=== PATIENT | male | born 1970 | race Caucasian/White ===

== ENCOUNTER 2018-08-08 11:34 | Emergency (ER) | payer OTHER ==
[2018-08-08] MEDS ORDERED: D50W 50 ml Abboject IV STA (11:44)
[2018-08-08 11:45] LABS: Lactic Acid 2.2 (0.4-2.0)
[2018-08-08] MEDS ORDERED: Sodium Chloride 0.9% 1000 ML 1,000 ML IV STA (11:46)
[2018-08-08 11:47] LABS: BASOPHIL % 0.4 % (0.0-0.4); Basophil (Absolute #) 0.03 (0-0.4); Eosinophil % 2.5 % (0.00-5.0); Granulocyte Absolute (ANC) 3.61 (1.4-6.9); Granulocytes % 44.9 % (36.0-66.0); Hematocrit 44.8 % (42-50); Hemoglobin 14.4 gm/dl (12.5-18.0); Lymphocyte (Absolute #) 3.46 (1.0-4.6); Lymphocytes % 43.1 % (24.0-44.0); Mean Cell Volume 91.2 fl (78-100); Mean Corpuscular Hemoglobin 29.3 pg (26-32); Mean Corpuscular Hgb Concent. 32.1 g/dl (32-36); Mean Platelet Volume 9.2 fl (6-9.5); Monocyte (Absolute #) 0.73 (0.0-1.3); Monocytes % 9.1 % (0.0-12.0); Platelet Count 351 K/mm3 (150-450); Red Blood Count 4.91 M/mm3 (4.1-5.6); Red Cell Distribution Width 13.6 % (11.5-14.0)
[2018-08-08 11:59] LABS: ALBUMIN 4.2 g/dL (3.5-5.0); ALKALINE PHOSPHATASE 94 U/L (38-126); ANION GAP 12.7 MEQ/L (5-15); BLOOD UREA NITROGEN 16 mg/dL (9-20); CHLORIDE 106 mmol/L (98-107); Calcium 9.4 mg/dL (8.4-10.2); Carbon Dioxide 30 mmol/L (22-30); Creatinine 1 0.96 mg/dL (0.66-1.25); MAGNESIUM 2.1 mg/dL (1.6-2.3); Potassium 3.1 mmol/L (3.5-5.1); SGOT/AST 28 U/L (17-59); SGPT/ALT 19 U/L (0-50); SODIUM 146 mmol/L (137-145); Total Protein 7.6 g/dL (6.3-8.2)
[2018-08-08] MEDS ORDERED: DEXTROSE 5%-NORMAL SALINE 500 ML 500 ML IV SCH (12:00)
[2018-08-08 12:13] LABS: ETHYL ALCOHOL < 10 mg/dL (0-10); Glucose < 20 mg/dL (74-106)
[2018-08-08] MEDS ORDERED: Klor Con 10 MEQ PO ONE ×2 (12:24→12:43)
[2018-08-08 12:54] VITALS: O2SAT 98
[2018-08-08] MEDS ORDERED: D50W 50 ml Abboject IV ONE ×2 (12:54→12:55)
[2018-08-08 13:34] LABS: Appearance CLEAR (CLEAR); Bilirubin NEGATIVE (NEGATIVE); Blood NEGATIVE Ery/ul (0-5); Glucose 150 mg/dL (NEGATIVE); Hyaline Casts 0-2 /LPF (0-2); Ketones NEGATIVE (NEGATIVE); Leukocyte Esterase NEGATIVE (NEGATIVE); Mucus SLIGHT /HPF (NEGATIVE); Nitrite NEGATIVE (NEGATIVE); Protein,Urine Dip NEGATIVE (Negative); Urobilinogen NEGATIVE mg/dL (0-1)
--- NOTE | 2018-08-08 16:13 | ERPHSYRPT ---
- History of Present Illness Source: other (co-workers) Exam Limitations: clinical condition Patient Subjective Stated Complaint: hypoglycemic, pt brought in by co workers vehicle unresponsive, BS from lab 10, Triage Nursing Assessment: Pt brought in unresponsive, diaphoretic, snoring, eyes rolling to the back of his head, given D50 and perked instantly up, BP 149/ 89, all other vitals wnl, denies pain, chest clear, Physician History: Pt was brought by his co-worker to the ER. Pt is 48 y/o male with a h/o DM I. He is using Insulin. Today, pt was at work , and did some construction, physical work outside, when he started being confused. By the time he was brought to the ER, the pt was non responsive. Timing/Duration: today Severity: severe Modifying Factors: Improves With: eating Allergies/Adverse Reactions: No Known Drug Allergies Allergy (Verified 08/08/18 12:25) Home Medications: Insulin Glargine [Lantus Insulin] 1 unit SQ UD 08/08/18 [History] Insulin Lispro [Humalog] 1 unit SQ UD 08/08/18 [History] - Review of Systems Constitutional: Other (Pt was non responsive and could not give any history.) - Past Medical History Cardiac History: High Cholesterol, Hypertension Endocrine Medical History: Diabetes Type I - Past Surgical History Past Surgical History: Yes Musculoskeletal: Orthopedic Surgery - Social History Smoking Status: Current some day smoker Exposure to second hand smoke: Yes Drug Use: none Patient Lives Alone: Yes - Nursing Vital Signs Nursing Vital Signs: Initial Vital Signs Temperature 97.8 F 08/08/18 12:12 Pulse Rate 85 08/08/18 12:12 Blood Pressure 149/89 08/08/18 12:12 O2 Sat by Pulse Oximetry 97 08/08/18 12:12 Pain Scale Pain Intensity 0 - Physical Exam General Appearance: lethargy, other (non responsive) Eye Exam: PERRL/EOMI, eyes nml inspection Ears, Nose, Throat Exam: normal ENT inspection, TMs normal, pharynx normal, moist mucous membranes Neck Exam: normal inspection, non-tender, supple, full range of motion Respiratory Exam: stridor Cardiovascular Exam: regular rate/rhythm, normal heart sounds, normal peripheral pulses Gastrointestinal/Abdomen Exam: soft, normal bowel sounds, No tenderness, No mass Back Exam: normal inspection, No CVA tenderness, No vertebral tenderness Extremity Exam: normal inspection, normal range of motion, pelvis stable Neurologic Exam: other (Pt was non responsive on presentation) SpO2: 98 - Course Nursing assessment & vital signs reviewed: Yes EKG Interpreted by Me: Sinus Rhythm Ordered Tests: Active Orders 24 hr Category Date Time Status CBC W DIFF Stat Lab 08/08/18 11:48 Completed CMP Stat Lab 08/08/18 12:01 Completed ETHYL ALCOHOL Stat Lab 08/08/18 12:01 Completed Glucose,Critical Care Stat Lab 08/08/18 11:51 Completed Lactic Acid Stat Lab 08/08/18 15:00 Completed Lactic Acid Urgent Lab 08/08/18 11:37 Completed MAGNESIUM Stat Lab 08/08/18 12:01 Completed TROPONIN Q3H Lab 08/08/18 12:01 Completed TROPONIN Q3H Lab 08/08/18 14:38 Completed TROPONIN Q3H Lab 08/08/18 17:45 Ordered TROPONIN Q3H Lab 08/08/18 20:45 Ordered TROPONIN Q3H Lab 08/08/18 23:45 Ordered UA W/RFX UR CULTURE Stat Lab 08/08/18 13:23 Completed Medication Summary Generic Name Dose Route Start Last Admin Trade Name Freq PRN Reason Stop Dose Admin Dextrose/Sodium Chloride 500 mls @ 999 mls/hr 08/08/18 12:00 08/08/18 11:59 Dextrose 5%-Normal Saline 500 Ml IV 09/07/18 11:59 50 mls/hr .Q31M GABRIEL Administration Discontinued Medications Generic Name Dose Route Start Last Admin Trade Name Freq PRN Reason Stop Dose Admin Dextrose 50 ml 08/08/18 11:44 08/08/18 11:45 D50w 50 Ml Abboject IV 08/08/18 11:45 50 ml PRN STA Administration Dextrose Confirm 08/08/18 12:54 D50w 50 Ml Abboject Administered 08/08/18 12:55 Dose 50 ml IV .STK-MED ONE Dextrose 50 ml 08/08/18 12:55 08/08/18 12:56 D50w 50 Ml Abboject IV 08/08/18 12:56 50 ml STAT ONE Administration Sodium Chloride 1,000 mls @ 999 mls/hr 08/08/18 11:46 08/08/18 12:57 Sodium Chloride 0.9% 1000 Ml IV 08/08/18 12:46 Infused .Q1H1M STA Infusion Potassium Chloride 40 meq 08/08/18 12:24 08/08/18 12:49 Klor Con 10 Meq PO 08/08/18 12:25 40 meq STAT ONE Administration Potassium Chloride Confirm 08/08/18 12:43 Klor Con 10 Meq Administered 08/08/18 12:44 Dose 40 meq PO .STK-MED ONE Lab/Rad Data: Laboratory Result Diagrams 08/08/18 11:48 08/08/18 12:01 Laboratory Results 08/08/18 08/08/18 08/08/18 Range/Units 15:00 14:38 13:23 WBC (4.0-10.5) K/mm3 RBC (4.1-5.6) M/mm3 Hgb (12.5-18.0) gm/dl Hct (42-50) % MCV (78-100) fl MCH (26-32) pg MCHC (32-36) g/dl RDW (11.5-14.0) % Plt Count (150-450) K/mm3 MPV (6-9.5) fl Gran % (36.0-66.0) % Eos # (Auto) (0-0.5) Absolute Lymphs (auto) (1.0-4.6) Absolute Monos (auto) (0.0-1.3) Lymphocytes % (24.0-44.0) % Monocytes % (0.0-12.0) % Eosinophils % (0.00-5.0) % Basophils % (0.0-0.4) % Absolute Granulocytes (1.4-6.9) Basophils # (0-0.4) Glucose (70-110) Sodium (137-145) mmol/L Potassium (3.5-5.1) mmol/L Chloride (98-107) mmol/L Carbon Dioxide (22-30) mmol/L Anion Gap (5-15) MEQ/L BUN (9-20) mg/dL Creatinine (0.66-1.25) mg/dL Estimated GFR ML/MIN Lactic Acid 1.4 (0.4-2.0) Calcium (8.4-10.2) mg/dL Magnesium (1.6-2.3) mg/dL Total Bilirubin (0.2-1.3) mg/dL AST (17-59) U/L ALT (0-50) U/L Alkaline Phosphatase (38-126) U/L Troponin I < 0.012 (0.000-0.034) ng/mL Serum Total Protein (6.3-8.2) g/dL Albumin (3.5-5.0) g/dL Urine Color YELLOW (YELLOW) Urine Appearance CLEAR (CLEAR) Urine pH 5.0 (5-6) Ur Specific [place] 1.020 (1.005-1.025) Urine Protein NEGATIVE (Negative) Urine Ketones NEGATIVE (NEGATIVE) Urine Blood NEGATIVE (0-5) Pancho/ul Urine Nitrite NEGATIVE (NEGATIVE) Urine Bilirubin NEGATIVE (NEGATIVE) Urine Urobilinogen NEGATIVE (0-1) mg/dL Ur Leukocyte Esterase NEGATIVE (NEGATIVE) Urine WBC (Auto) NONE (0-5) /HPF Urine RBC (Auto) NONE (0-2) /HPF U Hyaline Cast (Auto) 0-2 (0-2) /LPF U Epithel Cells (Auto) NONE (FEW) /HPF Urine Bacteria (Auto) NONE (NEGATIVE) /HPF Urine Mucus (Auto) SLIGHT (NEGATIVE) /HPF Urine Culture Reflexed NO (NO) Urine Glucose 150 (NEGATIVE) mg/dL Ethyl Alcohol (0-10) mg/dL 08/08/18 08/08/18 08/08/18 Range/Units 12:01 12:01 11:51 WBC (4.0-10.5) K/mm3 RBC (4.1-5.6) M/mm3 Hgb (12.5-18.0) gm/dl Hct (42-50) % MCV (78-100) fl MCH (26-32) pg MCHC (32-36) g/dl RDW (11.5-14.0) % Plt Count (150-450) K/mm3 MPV (6-9.5) fl Gran % (36.0-66.0) % Eos # (Auto) (0-0.5) Absolute Lymphs (auto) (1.0-4.6) Absolute Monos (auto) (0.0-1.3) Lymphocytes % (24.0-44.0) % Monocytes % (0.0-12.0) % Eosinophils % (0.00-5.0) % Basophils % (0.0-0.4) % Absolute Granulocytes (1.4-6.9) Basophils # (0-0.4) Glucose < 20 L* 10 L* (70-110) Sodium 146 H (137-145) mmol/L Potassium 3.1 L (3.5-5.1) mmol/L Chloride 106 (98-107) mmol/L Carbon Dioxide 30 (22-30) mmol/L Anion Gap 12.7 (5-15) MEQ/L BUN 16 (9-20) mg/dL Creatinine 0.96 (0.66-1.25) mg/dL Estimated GFR > 60.0 ML/MIN Lactic Acid (0.4-2.0) Calcium 9.4 (8.4-10.2) mg/dL Magnesium 2.1 (1.6-2.3) mg/dL Total Bilirubin 0.30 (0.2-1.3) mg/dL AST 28 (17-59) U/L ALT 19 (0-50) U/L Alkaline Phosphatase 94 (38-126) U/L Troponin I < 0.012 (0.000-0.034) ng/mL Serum Total Protein 7.6 (6.3-8.2) g/dL Albumin 4.2 (3.5-5.0) g/dL Urine Color (YELLOW) Urine Appearance (CLEAR) Urine pH (5-6) Ur Specific [place] (1.005-1.025) Urine Protein (Negative) Urine Ketones (NEGATIVE) Urine Blood (0-5) Pancho/ul Urine Nitrite (NEGATIVE) Urine Bilirubin (NEGATIVE) Urine Urobilinogen (0-1) mg/dL Ur Leukocyte Esterase (NEGATIVE) Urine WBC (Auto) (0-5) /HPF Urine RBC (Auto) (0-2) /HPF U Hyaline Cast (Auto) (0-2) /LPF U Epithel Cells (Auto) (FEW) /HPF Urine Bacteria (Auto) (NEGATIVE) /HPF Urine Mucus (Auto) (NEGATIVE) /HPF Urine Culture Reflexed (NO) Urine Glucose (NEGATIVE) mg/dL Ethyl Alcohol < 10 (0-10) mg/dL 08/08/18 08/08/18 Range/Units 11:48 11:37 WBC 8.0 (4.0-10.5) K/mm3 RBC 4.91 (4.1-5.6) M/mm3 Hgb 14.4 (12.5-18.0) gm/dl Hct 44.8 (42-50) % MCV 91.2 (78-100) fl MCH 29.3 (26-32) pg MCHC 32.1 (32-36) g/dl RDW 13.6 (11.5-14.0) % Plt Count 351 (150-450) K/mm3 MPV 9.2 (6-9.5) fl Gran % 44.9 (36.0-66.0) % Eos # (Auto) 0.20 (0-0.5) Absolute Lymphs (auto) 3.46 (1.0-4.6) Absolute Monos (auto) 0.73 (0.0-1.3) Lymphocytes % 43.1 (24.0-44.0) % Monocytes % 9.1 (0.0-12.0) % Eosinophils % 2.5 (0.00-5.0) % Basophils % 0.4 (0.0-0.4) % Absolute Granulocytes 3.61 (1.4-6.9) Basophils # 0.03 (0-0.4) Glucose (70-110) Sodium (137-145) mmol/L Potassium (3.5-5.1) mmol/L Chloride (98-107) mmol/L Carbon Dioxide (22-30) mmol/L Anion Gap (5-15) MEQ/L BUN (9-20) mg/dL Creatinine (0.66-1.25) mg/dL Estimated GFR ML/MIN Lactic Acid 2.2 H (0.4-2.0) Calcium (8.4-10.2) mg/dL Magnesium (1.6-2.3) mg/dL Total Bilirubin (0.2-1.3) mg/dL AST (17-59) U/L ALT (0-50) U/L Alkaline Phosphatase (38-126) U/L Troponin I (0.000-0.034) ng/mL Serum Total Protein (6.3-8.2) g/dL Albumin (3.5-5.0) g/dL Urine Color (YELLOW) Urine Appearance (CLEAR) Urine pH (5-6) Ur Specific [place] (1.005-1.025) Urine Protein (Negative) Urine Ketones (NEGATIVE) Urine Blood (0-5) Pancho/ul Urine Nitrite (NEGATIVE) Urine Bilirubin (NEGATIVE) Urine Urobilinogen (0-1) mg/dL Ur Leukocyte Esterase (NEGATIVE) Urine WBC (Auto) (0-5) /HPF Urine RBC (Auto) (0-2) /HPF U Hyaline Cast (Auto) (0-2) /LPF U Epithel Cells (Auto) (FEW) /HPF Urine Bacteria (Auto) (NEGATIVE) /HPF Urine Mucus (Auto) (NEGATIVE) /HPF Urine Culture Reflexed (NO) Urine Glucose (NEGATIVE) mg/dL Ethyl Alcohol (0-10) mg/dL - Progress Progress: improved Progress Note: 08/08/18 16:09 Pt was brought to the ER and D 50% amp was given. Pt immediately improved. D5/ 0.9NS was initiated. Labs were taken and on BMP pt's BG was 10. All work up was negative, including Trop, sCr, UA. Pt improved and was back to his baseline. A couple of hours post presentation, his BG dropped again to the 30s , and he got another Amp of D50%. Pt was fed, and his BG later increased to 139. In two hours his BG was in the 270s, and pt was cleared for d/c. D5 IVF were stopped. Pt should increase his fluid intake and f/u with his PCP or instrument lens grinder. Will see patient in: office Counseled pt/family regarding: need for follow-up - Departure Departure Disposition: Home Clinical Impression: Hypoglycemia due to type 1 diabetes mellitus Condition: Stable Critical Care Time: Yes Critical Care Time(excluding separately billable procedures): 30-74 minutes Referrals: [facility] [employer] [facility] [Primary Care Provider] - Additional Instructions: Pt should check his BG frequently today, and f/u with his PCP/Modeler. Drink plenty of fluids.
[2018-08-08 16:18] VITALS: BP 168/80; PULSE 82
== END 2018-08-08 16:23 | disposition home or self-care (01) ==
LOC: ED 11:34
DX: E10.649 Type 1 diabetes mellitus with hypoglycemia without coma (principal); Z74.9 Problem related to care provider dependency, unspecified
CPT/HCPCS: 36415; 80053; 80307; 81001; 82947; 83605; 83735; 84484; 85025; 96360; 96365; 96374; 96376; 99284; 99291; A9270-GY; G0480

== ENCOUNTER 2022-06-20 18:57 | Emergency (ER) | payer OTHER ==
[2022-06-20 19:09] VITALS: BP 164/105; PULSE 88; O2SAT 98
== END 2022-06-20 19:10 | disposition left against medical advice (07) ==
LOC: ED 18:57
DX: E10.649 Type 1 diabetes mellitus with hypoglycemia without coma (principal)
CPT/HCPCS: 99281